=== PATIENT | female | born 1970 | race Caucasian/White ===

== ENCOUNTER 2016-12-30 17:09 | Emergency (ER) | payer MEDICARE, OTHER ==
[~2016-12-30] VITALS: Ht 165.1 cm; Wt 76.0 kg
[2016-12-30 17:12] VITALS: BP 129/72; PULSE 98; RESP 24; TEMP 98.5; O2SAT 100
[2016-12-30] MEDS ORDERED: MORPHINE SULFATE 4 MG/ML INJ IM ONE (18:45)
[2016-12-30] MEDS ORDERED: ONDANSETRON ODT 4 MG TAB PO ONE (18:45)
--- NOTE | 2016-12-30 18:45 | PD ---
HPI Chief Complaint: Back/ Neck Pain or Injury Time Seen by Provider: 18:31 Travel History International Travel<30 days: No Contact w/Intl Traveler<30days: No Traveled to known affect area: No History of Present Illness HPI 46-year-old female with headache, neck pain, right shoulder pain, right elbow pain, right hip pain, right knee pain, low back pain with radiation to the left leg. Patient states that she has history of sciatica with low back pain with pain radiation to left leg for the past 3 weeks. Patient was seen by local physician and waiting referral to orthopedist. Patient has been taking ibuprofen for pain. Patient states that she fell off her toilet this morning landing on the right side. Patient states that she had a short moment of loss of consciousness. Patient complains of aching headache on the right side the head, neck pain, right shoulder pain, right elbow pain, right hip pain and right knee pain. Patient states that she has laceration to right elbow. Patient states that she is up-to-date with TD booster. Patient denies any chest pain or shortness of breath. Patient denies abdominal pain. Patient denies any focal weakness or numbness of extremity. Patient states that she has intermittent nausea vomiting after the fall. PFSH Past Medical History Respiratory: Yes (ASTHMA) Social History Tobacco Use: No Allergies-Medications (Allergen,Severity, Reaction): Coded Allergies: Aspirin (Verified Allergy, Severe, Hives, 12/30/16) Darvocet-N 100 (Verified Allergy, Severe, Hives, 12/30/16) Rocephin (Verified Allergy, Severe, THROAT CLOSEWS, 12/30/16) Uncoded Allergies: OTC ANTIHISTAMINES (Allergy, Severe, Hives, 11/13/04) Reported Meds & Prescriptions Reported Meds & Active Scripts Active Hollywood (Hydrocodone-Acetaminophen) 10-325 Mg Tab 1 Tab PO Q6H PRN Hollywood (Hydrocodone-Acetaminophen) 5-325 mg Tab 1 Tab PO Q6H PRN Flexeril (Cyclobenzaprine HCl) 10 Mg Tab 10 Mg PO TID Prednisone 20 Mg Tab 20 Mg PO BID Review of Systems General / Constitutional: No: Fever Eyes: No: Visual changes HENT: Positive: Headaches, Neck Pain Cardiovascular: No: Chest Pain or Discomfort Respiratory: No: Shortness of Breath Gastrointestinal: No: Abdominal Pain Genitourinary: No: Dysuria Musculoskeletal: Positive: Pain Skin: No Rash Neurologic: No: Weakness Psychiatric: No: Depression Endocrine: No: Polydipsia Hematologic/Lymphatic: No: Easy Bruising Physical Exam Narrative GENERAL: Well-nourished, well-developed patient. SKIN: Focused skin assessment warm/dry. HEAD: Normocephalic. Patient has moderate tenderness on palpation right parietal occipital area of the scalp. No laceration abrasion noted. EYES: No scleral icterus. No injection or drainage. Pupils 2 mm equal reactive. NECK: Supple, trachea midline. No JVD or lymphadenopathy. Patient has mild to moderate diffuse tenderness over the posterior cervical area. No midline tenderness. CARDIOVASCULAR: Regular rate and rhythm without murmurs, gallops, or rubs. RESPIRATORY: Breath sounds equal bilaterally. No accessory muscle use. GASTROINTESTINAL: Abdomen soft, non-tender, nondistended. MUSCULOSKELETAL: No cyanosis, or edema. Patient has diffuse tenderness over the right shoulder joint, right elbow. Patient has 1.5 cm laceration olecranon area the right elbow. No active bleeding. Full range of motion the right elbow. Patient has moderate diffuse tenderness over the right hip and right knee with no ecchymosis prepatellar area of the right knee joint. Full range of motion all extremity. BACK: Moderate tenderness on palpation of of the lumbar area, without obvious deformity. No CVA tenderness. Negative straight leg raising. Patient has tenderness on palpation of the left sciatic notch area. Neurologic exam normal. Neurologic exam normal. Data Data Last Documented VS Vital Signs Date Time Temp Pulse Resp B/P Pulse Ox O2 Delivery O2 Flow Rate FiO2 12/30/16 17:12 98.5 98 24 129/72 100 Room Air Orders Morphine Inj (Morphine Inj) (12/30/16 18:45) Ondansetron Odt (Zofran Odt) (12/30/16 18:45) Ct Brain W/O Iv Contrast(Rout) (12/30/16 19:12) Ct Cerv Spine W/O Contrast (12/30/16 19:12) Ct Lumb Spine W/O Contrast (12/30/16 19:12) Elbow, Complete (4 Vws) (12/30/16 19:12) Hip, Uni(Ap&Lat) W Ap Pelvis (12/30/16 19:12) Knee, Complete (4vws) (12/30/16 19:12) Shoulder, Limited(2vws) (12/30/16 19:12) Acetamin-Hydrocod 325-10 Mg (Hollywood 10-32 (12/30/16 21:00) [facility] Medical Decision Making Medical Screen Exam Complete: Yes Emergency Medical Condition: Yes Interpretation(s) Last Impressions Shoulder X-Ray 12/30/161911 Signed Impressions: Service Date/Time: Friday, December 30, 2016 19:30 - CONCLUSION: No acute disease. Daniel Schrader MD Lumbar Spine CT 12/30/161911 Signed Impressions: Service Date/Time: Friday, December 30, 2016 19:41 - CONCLUSION: 1. No fracture or subluxation. 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 3. Mild degenerative changes L5-S1. 4. Protrusions at L4-5 and L5-S1 levels. Daniel Schrader MD Knee X-Ray 12/30/161911 Signed Impressions: Service Date/Time: Friday, December 30, 2016 19:29 - CONCLUSION: No acute disease. Daniel Schrader MD Hip and Pelvis X-Ray 12/30/161911 Signed Impressions: Service Date/Time: Friday, December 30, 2016 19:26 - CONCLUSION: No acute disease. Daniel Schrader MD Head CT 12/30/161911 Signed Impressions: Service Date/Time: Friday, December 30, 2016 19:38 - CONCLUSION: Normal examination. Daniel Schrader MD Elbow X-Ray 12/30/161911 Signed Impressions: Service Date/Time: Friday, December 30, 2016 19:32 - CONCLUSION: No acute disease. Daniel Schrader MD Cervical Spine CT 12/30/161911 Signed Impressions: Service Date/Time: Friday, December 30, 2016 19:38 - CONCLUSION: 1. No fracture or subluxation. Daniel Schrader MD Differential Diagnosis Differential diagnosis including head injury, neck injury, extremity injury, sciatica. Narrative Course 46-year-old female with low back pain, left leg pain, right-sided head neck shoulder hip knee pain. History of sciatica and status post fall today. Morphine 4 mg IM. Zofran 4 mg ODT. Lortab 10/325, one tablet by mouth given. Diagnosis Primary Impression: Left sided sciatica Additional Impressions: Multiple contusions Closed head injury Qualified Code: S09.90XA - Closed head injury, initial encounter Patient Instructions: General Instructions Additional Instructions: Take medications as directed for pain. Follow-up with personal physician and orthopedist. Head trauma instructions given. Med/Other Pt SpecificInfo: Prescription(s) given Scripts Hydrocodone-Acetaminophen (Hollywood)10-325 Mg Tab1 Tab PO Q6H PRN (PAIN) #20 TAB Ref 0 Prov:Delmar Lowry MD 12/30/16 Hydrocodone-Acetaminophen (Hollywood)5-325 mg Tab1 Tab PO Q6H PRN (PAIN) #20 TAB Prov:Delmar Lowry MD 12/30/16 Cyclobenzaprine (Flexeril)10 Mg Tab10 Mg PO TID #90 TAB Prov:Delmar Lowry MD 12/30/16 Prednisone 20 Mg Tab20 Mg PO BID #14 TAB Prov:Delmar Lowry MD 12/30/16 Disposition: 01 DISCHARGE HOME Condition: Stable Delmar Lwory MD Dec 30, 2016 18:45
--- NOTE | 2016-12-30 19:46 | RADRPT ---
EXAM DATE/TIME: 12/30/2016 19:26 [facility] COMPARISON: No previous studies available for comparison. INDICATIONS : Right hip pain post fall. MEDICAL HISTORY : None. SURGICAL HISTORY : None. ENCOUNTER: Initial ACUITY: 1 day PAIN SCORE: 8/10 LOCATION: Right hip. FINDINGS: Examination of the right hip was performed with AP Pelvis. The primary and secondary trabecular ramon lobo of the femoral neck is intact. The hip joint is of normal width without significant sclerosis or bony hypertrophy. The acetabulum is grossly intact. CONCLUSION: No acute disease. Daniel Schrader MD on December 30, 2016 at 19:44 Board Certified Radiologist. This report was verified electronically.
--- NOTE | 2016-12-30 19:47 | RADRPT ---
EXAM DATE/TIME: 12/30/2016 19:29 [facility] COMPARISON: No previous studies available for comparison. INDICATIONS : Right knee pain post fall. MEDICAL HISTORY : None. SURGICAL HISTORY : None. ENCOUNTER: Initial ACUITY: 1 day PAIN SCORE: 4/10 LOCATION: Right knee FINDINGS: Four view examination of the right knee demonstrates no evidence of fracture or dislocation. Bony mi neralization is normal. The articular surfaces are intact. The suprapatellar soft tissues have a no rmal configuration. CONCLUSION: No acute disease. Daniel Schrader MD on December 30, 2016 at 19:45 Board Certified Radiologist. This report was verified electronically.
--- NOTE | 2016-12-30 19:47 | RADRPT ---
EXAM DATE/TIME: 12/30/2016 19:30 [facility] COMPARISON: No previous studies available for comparison. INDICATIONS : Right shoulder pain post fall. MEDICAL HISTORY : None. SURGICAL HISTORY : None. ENCOUNTER: Initial ACUITY: 1 day PAIN SCORE: 4/10 LOCATION: Right shoulder FINDINGS: Two view examination of the right shoulder demonstrates no evidence of fracture or dislocation. The glenohumeral and acromioclavicular joints are maintained. Bony mineralization is normal. CONCLUSION: No acute disease. Daniel Schrader MD on December 30, 2016 at 19:45 Board Certified Radiologist. This report was verified electronically.
--- NOTE | 2016-12-30 19:47 | RADRPT ---
EXAM DATE/TIME: 12/30/2016 19:32 [facility] COMPARISON: No previous studies available for comparison. INDICATIONS : Right elbow pain post fall. MEDICAL HISTORY : None. SURGICAL HISTORY : None. ENCOUNTER: Initial ACUITY: 1 day PAIN SCORE: 4/10 LOCATION: Right elbow. FINDINGS: Multiple view examination of the right elbow demonstrates no soft tissue swelling, joint effusion, or fracture. The osseous structures are in normal alignment. Bony mineralization is normal. CONCLUSION: No acute disease. Daniel Schrader MD on December 30, 2016 at 19:45 Board Certified Radiologist. This report was verified electronically.
--- NOTE | 2016-12-30 19:49 | RADRPT ---
EXAM DATE/TIME: 12/30/2016 19:38 [facility] COMPARISON: No previous studies available for comparison. INDICATIONS : Syncope episode with fall. RADIATION DOSE: 56.35 CTDIvol (mGy) MEDICAL HISTORY : None SURGICAL HISTORY : None. ENCOUNTER: Initial ACUITY: 1 day PAIN SCALE: 4/10 LOCATION: cranial TECHNIQUE: Multiple contiguous axial images were obtained of the head. Using automated exposure control and adj ustment of the mA and/or kV according to patient size, radiation dose was kept as low as reasonably a chievable to obtain optimal diagnostic quality images. DICOM format image data is available electro nically for review and comparison. FINDINGS: CEREBRUM: The ventricles are normal for age. No evidence of midline shift, mass lesion, hemorrhage or acute in farction. No extra-axial fluid collections are seen. POSTERIOR FOSSA: The cerebellum and brainstem are intact. The 4th ventricle is midline. The cerebellopontine angle i s unremarkable. EXTRACRANIAL: The visualized portion of the orbits is intact. SKULL: The calvaria is intact. No evidence of skull fracture. CONCLUSION: Normal examination. Daniel Schrader MD on December 30, 2016 at 19:47 Board Certified Radiologist. This report was verified electronically.
--- NOTE | 2016-12-30 19:56 | RADRPT ---
EXAM DATE/TIME: 12/30/2016 19:38 [facility] COMPARISON: No previous studies available for comparison. INDICATIONS : Syncope episode with fall. RADIATION DOSE: 36.63 CTDIvol (mGy) MEDICAL HISTORY : None SURGICAL HISTORY : None. ENCOUNTER: Initial ACUITY: 1 day PAIN SCALE: 9/10 LOCATION: neck TECHNIQUE: Volumetric scanning of the cervical spine was performed. Multiplanar reconstructions in the sagittal, coronal and oblique axial planes were performed. Using automated exposure control and adjustment o f the mA and/or kV according to patient size, radiation dose was kept as low as reasonably achievable to obtain optimal diagnostic quality images. DICOM format image data is available electronically f or review and comparison. FINDINGS: VERTEBRAE: Normal vertebral body height. ALIGNMENT: No evidence of subluxation. C2-C3: The bony spinal canal is normal in size. No evidence of disc bulge or herniation. The neural forami na are bilaterally patent. C3-C4: The bony spinal canal is normal in size. No evidence of disc bulge or herniation. The neural forami na are bilaterally patent. C4-C5: Small central protrusion without canal stenosis.. The neural foramina are bilaterally patent. C5-C6: Shallow asymmetric right-sided protrusion without canal stenosis.. The neural foramina are bilateral ly patent. C6-C7: The bony spinal canal is normal in size. No evidence of disc bulge or herniation. The neural forami na are bilaterally patent. C7-T1: The bony spinal canal is normal in size. No evidence of disc bulge or herniation. The neural forami na are bilaterally patent. CONCLUSION: 1. No fracture or subluxation. Daniel Schrader MD on December 30, 2016 at 19:54 Board Certified Radiologist. This report was verified electronically.
--- NOTE | 2016-12-30 20:05 | RADRPT ---
EXAM DATE/TIME: 12/30/2016 19:41 [facility] COMPARISON: No previous studies available for comparison. INDICATIONS : Syncopal episode. RADIATION DOSE: 27.84 CTDIvol (mGy) MEDICAL HISTORY : None SURGICAL HISTORY : None. ENCOUNTER: Initial ACUITY: 1 day PAIN SCALE: 9/10 LOCATION: Left lumbat TECHNIQUE: Volumetric scanning of the lumbar spine was performed. Multiplanar reconstructions in the sagittal, coronal and oblique axial planes were performed. Using automated exposure control and adjustment of the mA and/or kV according to patient size, radiation dose was kept as low as reasonably achievable t o obtain optimal diagnostic quality images. DICOM format image data is available electronically for review and comparison. FINDINGS: VERTEBRAE: Normal vertebral body height. No fracture. Congenital fusion at L3-4. Degenerative changes at L5-S1. ALIGNMENT: No evidence of subluxation. T12-L1: The thecal sac has a normal diameter. No evidence of disc bulge or protrusion. The neural foramina are patent bilaterally. L1-L2: The thecal sac has a normal diameter. No evidence of disc bulge or protrusion. The neural foramina are patent bilaterally. L2-L3: The thecal sac has a normal diameter. No evidence of disc bulge or protrusion. The neural foramina are patent bilaterally. L3-L4: The thecal sac has a normal diameter. No evidence of disc bulge or protrusion. The neural foramina are patent bilaterally. L4-L5: Small central protrusion abuts the ventral thecal sac without canal stenosis.. The neural foramina a re patent bilaterally. L5-S1: Moderate asymmetric left-sided protrusion abuts the ventral thecal sac. No canal stenosis but there i s narrowing of the left lateral recess. The neural foramina are patent bilaterally. CONCLUSION: 1. No fracture or subluxation. 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 3. Mild degenerative changes L5-S1. 4. Protrusions at L4-5 and L5-S1 levels. Daniel Schrader MD on December 30, 2016 at 19:58 Board Certified Radiologist. This report was verified electronically.
[2016-12-30] MEDS ORDERED: PRED20 PO (20:27)
[2016-12-30] MEDS ORDERED: NORC5TAB PO (20:27)
[2016-12-30] MEDS ORDERED: CYCL1TAB29 PO (20:27)
[2016-12-30] MEDS ORDERED: HYDR-3366 PO (20:49)
[2016-12-30] MEDS ORDERED: ACETAMINOPHEN/HYDROcodone 325 MG/10 MG TAB PO ONE (21:00)
== END 2016-12-30 20:57 | disposition home or self-care (01) ==
LOC: NEPD 17:09
DX: M54.32 Sciatica, left side (principal); S09.90XA Unspecified injury of head, initial encounter; M79.605 Pain in left leg; R51 Headache; M54.2 Cervicalgia; M25.511 Pain in right shoulder; M25.551 Pain in right hip; M25.561 Pain in right knee; W18.11XA Fall from or off toilet without subsequent striking against object, initial encounter
CPT/HCPCS: 70450; 72125; 72131; 73030; 73080; 73502; 73564; 96372; 99285; J2270